=== PATIENT | male | born 1935 | race Caucasian/White ===

== ENCOUNTER 2017-11-16 10:49 | Emergency (ER) | payer OTHER ==
[~2017-11-16] VITALS: Ht 185.4 cm; Wt 93.1 kg
[~2017-11-16 10:49] MED LIST: ALLOPURINOL100 MG PO; ASPIRIN325 MG PO; AVODART0.5 MG PO; B12 HEALTH1000 MCG/1 PO; COZAAR50 MG PO; D3 DOTS2000 UNIT PO; FISH OIL 1,0001 EAC7 PO; FLOMAX0.4 M1 PO; FLONASE16 G1 BOTH NARES; FUROSEMIDE40 MG PO; KLOR-CON 88 MEQ PO; LOSARTAN POTASS50 MG PO; MAG-OXIDE400 MG PO; METFORMIN HCL1000 MG PO; METFORMIN HCL850 MG PO; METOPROLOL SUCC50 MG PO; MONTELUKAST SOD10 MG PO; NAC600 MG PO; NORCO 5/3251 TABLET PO; PRAVASTATIN SOD40 MG PO; SIMVASTATIN40 M1 PO; VITAMIN B12-FO1 EACH PO; VITAMIN C1000 MG PO; VITAMIN D3 PO
[2017-11-16 11:23] LABS: HEMATOCRIT 41.5 % (38.0-50.0); HEMOGLOBIN 14.2 G/DL (12.5-16.6); MCH 31.6 PG (29.0-34.0); MCHC 34.2 G/DL (30.0-36.0); MCV 92.2 FL (86-99); PLATELET COUNT 244 K/uL (156-360); RBC DIS.WIDTH-CV 13.6 % (11.8-14.6); RBC DIS.WIDTH-SD 46.5 % (39-53); WHITE BLOOD COUNT 11.7 K/uL (4.1-10.2)
[2017-11-16 11:41] LABS: CHLORIDE 105 mEq/L (99-109); POTASSIUM 4.6 mEq/L (3.7-5.4); SODIUM 140 mEq/L (136-147)
[2017-11-16 11:42] LABS: GLUCOSE 157 mg/dL (70-99)
[2017-11-16 11:46] LABS: GFR ESTIMATE (CALCULATED) > 59 mL/min/ (58.99-99999)
[2017-11-16 11:47] LABS: TROP-I INTERPRETATION NEGATIVE; TROPONIN-I < 0.01 ng/mL (0.0-0.30); UREA NITROGEN (BUN) 18 mg/dL (9-23)
[2017-11-16 13:30] LABS: APPEARANCE CLEAR ((CLEAR)); BILIRUBIN NEGATIVE; BLOOD NEGATIVE; COLOR STRAW ((YELLOW)); GLUCOSE (STRIP) NEGATIVE; KETONES NEGATIVE; LEUKOCYTES NEGATIVE; NITRITE NEGATIVE; PROTEIN (STRIP) NEGATIVE; SPECIFIC GRAVITY 1.012 (1.000-1.030); UCUL ADDED? NO; UROBILINOGEN 0.2 MG/DL (0.2-1.0)
[2017-11-16 13:32] LABS: TOTAL PROTEIN 6.7 g/dL (6.4-8.3)
[2017-11-16 13:34] LABS: TOTAL BILIRUBIN 0.4 mg/dL (0.0-1.0)
[2017-11-16 13:35] LABS: ALKALINE PHOSPHATASE 112 IU/L (3-129)
[2017-11-16 13:37] LABS: AST (GOT) 15 IU/L (2-34); DIRECT BILIRUBIN 0.2 mg/dL (0.0-0.3)
[2017-11-16 13:38] LABS: ALT (GPT) 18 IU/L (3-49); LIPASE 8 U/L (1.0-51.0)
[2017-11-16] MEDS ORDERED: OMEPRAZOLE40 M1 PO (18:29)
[2017-11-16 18:42] VITALS: BP 150/96
== END 2017-11-16 18:48 | disposition home or self-care (01) ==
LOC: EME 10:49
PROVIDERS: Emergency Medicine
DX: R10.13 Epigastric pain (principal); I10 Essential (primary) hypertension; E11.9 Type 2 diabetes mellitus without complications; E78.5 Hyperlipidemia, unspecified; Z79.84 Long term (current) use of oral hypoglycemic drugs; Z79.82 Long term (current) use of aspirin; Z82.49 Family history of ischemic heart disease and other diseases of the circulatory system
CPT/HCPCS: 71046; 71275; 74174; 80048; 80076; 81003; 83690; 84484; 85027; 93005; 99281; 99285; J0360; J3010; J7040; S0028

== ENCOUNTER 2017-12-22 12:28 | Emergency (ER) | payer OTHER ==
[~2017-12-22] VITALS: Ht 185.4 cm; Wt 95.5 kg
[~2017-12-22 12:28] MED LIST changes: +OMEPRAZOLE40 M1 PO
[2017-12-22 15:16] LABS: BASOPHIL (%) 0.6 % (0-1); EOSINOPHIL (%) 1.4 % (0-5); EOSINOPHIL COUNT 0.1 K/uL (0-0.3); HEMATOCRIT 39.5 % (38.0-50.0); HEMOGLOBIN 13.4 G/DL (12.5-16.6); IMMATURE GRANULOCYTE (%) 0.4 % (0.0-0.7); LYMPHOCYTE (%) 23.1 % (15-42); LYMPHOCYTE COUNT 1.2 K/uL (1.0-2.8); MCH 31.5 PG (29.0-34.0); MCHC 33.9 G/DL (30.0-36.0); MCV 92.9 FL (86-99); MONOCYTE (%) 9.2 % (3-12); MONOCYTE COUNT 0.5 K/uL (0-0.8); NEUTROPHIL (%) 65.3 % (45-76); NEUTROPHIL COUNT 3.3 K/uL (1.8-6.4); PLATELET COUNT 212 K/uL (156-360); RBC DIS.WIDTH-CV 13.6 % (11.8-14.6); RBC DIS.WIDTH-SD 46.5 % (39-53); RED BLOOD COUNT 4.25 M/uL (4.00-5.50)
[2017-12-22 15:25] LABS: CHLORIDE 108 mEq/L (99-109); POTASSIUM 4.1 mEq/L (3.7-5.4); SODIUM 141 mEq/L (136-147)
[2017-12-22 15:27] LABS: GLUCOSE 119 mg/dL (70-99)
[2017-12-22 15:31] LABS: CREATININE 0.8 mg/dL (0.6-1.3); GFR ESTIMATE (CALCULATED) > 59 mL/min/ (58.99-99999); UREA NITROGEN (BUN) 11 mg/dL (9-23)
[2017-12-22] MEDS ORDERED: BACTRIM,SEPT1 TABLET PO (16:49)
[2017-12-22 17:30] VITALS: BP 198/92
== END 2017-12-22 18:35 | disposition home or self-care (01) ==
LOC: EME 12:28
PROVIDERS: Emergency Medicine
DX: L03.116 Cellulitis of left lower limb (principal); L03.115 Cellulitis of right lower limb; R60.0 Localized edema; E78.5 Hyperlipidemia, unspecified; E11.9 Type 2 diabetes mellitus without complications; I10 Essential (primary) hypertension; Z79.84 Long term (current) use of oral hypoglycemic drugs
CPT/HCPCS: 73630; 80048; 83605; 83880; 85025; 87040; 93005; 93970; J1940; J3370